=== PATIENT | male | born 2005 | race Caucasian/White ===

== ENCOUNTER 2024-03-23 13:45 | Emergency (ER) | payer MEDICAID ==
[~2024-03-23] VITALS: Ht 175.3 cm; Wt 168.0 kg
[2024-03-23 13:56] VITALS: PULSE 80; O2SAT 99
[2024-03-23 14:22] VITALS: BP 136/80; RESP 18; TEMP 98.5; O2SAT 100
[2024-03-23] MEDS ORDERED: FLUORESCEIN SODIUM 1MG/STRIP BOTHEYE ONE (14:30)
[2024-03-23] MEDS ORDERED: TETRACAINE 0.5% OPHTH DROPS 4ML EACHEYE ONE (14:30)
[2024-03-23] MEDS ORDERED: OFLO5DRO LEFTEYE (17:21)
[2024-03-23] MEDS: FLUORESCEIN SODIUM 1MG/STRIP BOTHEYE NR (17:25)
[2024-03-23] MEDS: TETRACAINE 0.5% OPHTH DROPS 4ML EACHEYE NR (17:26)
== END 2024-03-23 17:38 | disposition home or self-care (01) ==
LOC: ER 13:45
DX: S05.02XA Injury of conjunctiva and corneal abrasion without foreign body, left eye, initial encounter (principal); J45.909 Unspecified asthma, uncomplicated; X58.XXXA Exposure to other specified factors, initial encounter; Y93.89 Activity, other specified; Y92.89 Other specified places as the place of occurrence of the external cause; Y99.8 Other external cause status
CPT/HCPCS: 99283